=== PATIENT | female | born 2005 | race Caucasian/White ===

== ENCOUNTER 2023-04-30 14:58 | Inpatient (IN) ==
--- NOTE | 2023-04-30 15:45 | XRay Report ---
SINGLE VIEW CHEST CLINICAL HISTORY: Atypical chest pain FINDINGS: A PA chest radiograph is obtained. No prior studies are available for comparison at the yusuf e of dictation. The cardiomediastinal silhouette is unremarkable. The lungs and pleural spaces are cl ear. No pneumothorax is seen. The bony thorax is grossly intact. IMPRESSION: No active disease in the chest. ACT 112: Negative or not required by law. Electronically signed by: Santi Pagan M.D. 04/30/2023 3:44 PM
[2023-04-30 15:50] LABS: Basophils # (auto) 0.06 K/uL (0.00-0.20); Basophils % (auto) 0.8 %; Eosinophils # (auto) 0.11 K/uL (0.00-0.50); Eosinophils % (auto) 1.4 %; Hematocrit (blood only) 41.8 % (37.0-47.0); Hemoglobin 13.7 g/dl (12.0-16.0); Immature Granulocytes # (auto) 0.03 K/uL (0.01-0.20); Immature Granulocytes % (auto) 0.4 %; Lymphocytes # (auto) 2.05 K/uL (1.20-3.40); Lymphocytes % (auto) 25.9 %; Mean Corpuscular Hgb Conc 32.8 g/dL (32.0-36.0); Mean Corpuscular Volume 79.3 fL (80.0-100.0); Mean Platelet Volume 10.8 fL (9.4-12.4); Monocytes # (auto) 0.63 K/uL (0.11-0.59); Neutrophils # (auto) 5.03 K/uL (1.40-6.50); Neutrophils % (auto) 63.5 %; Platelet Count 423 K/uL (130-400); RDW Coefficient of Variation 13.6 % (11.5-14.5); Red Blood Count 5.27 M/uL (4.20-5.40); White Blood Count 7.91 K/ul (4.8-10.8)
[2023-04-30 15:59] LABS: Alanine Aminotransferase 30 U/L (7-52); Albumin Globulin Ratio 1.7 (0.9-2); Albumin Level 4.5 gm/dl (3.4-5.0); Alkaline Phosphatase 63 U/L (34-104); Anion Gap 7 (3-11); Aspartate Aminotransferase 24 U/L (13-39); BUN Creatinine Ratio 17.4 (10-20); Bilirubin,Total 0.4 mg/dl (0.2-1.0); Blood Urea Nitrogen 16 mg/dl (6-23); Calcium 9.8 mg/dl (8.6-10.3); Carbon Dioxide 26 mmol/L (21-32); Chloride 108 mmol/L (98-107); Creatinine Clr Calc Pharmacy 77.8 ml/min; Est GFR (African American) 104.6 ml/min; Est GFR (Non-African American) 90.3 ml/min; Globulin 2.7 gm/dl (2.5-4.0); Glucose 99 mg/dl (70-99(Fasting)); Potassium 3.8 mmol/L (3.5-5.1); Sodium 141 mmol/L (136-145); Total Protein 7.2 gm/dl (6.0-8.3)
[2023-04-30 16:09] LABS: Troponin I High Sensitivity 215.6 pg/ml (0-14)
[2023-04-30 16:12] LABS: INR 1.1 (0.9-1.1); Partial Thromboplastin Time 27 Seconds (21-31); Prothrombin Time 11.9 Seconds (9.0-12.0)
--- NOTE | 2023-04-30 16:23 | Electrocardiogram Report ---
Test Reason : Blood Pressure : / mmHG Vent. Rate : 049 BPM Atrial Rate : 049 BPM P-R Int : 142 ms QRS Dur : 118 ms QT Int : 556 ms P-R-T Axes : 066 104 042 degrees QTc Int : 502 ms Sinus bradycardia with 2:1 A-V block Rightward axis Incomplete right bundle branch block Normal ECG No previous ECGs available Reconfirmed by Renato Gray ([id number]) on 05/01/2023 11:39:20 AM Referred By: Confirmed By:Renato Gray
--- NOTE | 2023-04-30 16:27 | Emergency Department Note ---
Impression & Plan Complete heart block, Chest pain, Shortness of breath, Elevated troponin ED Provider Note NAME: LOLA CAICEDO AGE: 17 SEX: F : 2005 ARRIVES VIA: Walk-In INFORMANT: Patient ED PROVIDER(S): Marko Craft DO CHIEF COMPLAINT: chest pain HPI: Patient is a 17-year-old female with no significant past medical history that presents the ER for 5 days worth of chest pain and shortness of breath. It is in the middle and goes through to the back described as a squeezing pain. She notes it has been gradually getting worse. Mainly with exertion. No belly pain, nausea, vomiting, or diarrhea. No dysuria, urgency, or frequency. No history of Marfan's or Padmaja-Danlos. She notes it is better at rest but she sometimes still gets it with rest. Patient denies swelling of calves, recent trips, history of immobilization or recent surgery, prior history of DVT, hemoptysis, history of malignancy, history of smoking, or control/estrogen use. Patient denies diabetes, hypertension, hyperlipidemia, CAD, history of sudden at a young age, and smoking. ADDITIONAL HISTORY OBTAINED: Per HPI Chronic Medical/Social Conditions Affecting Care: Per HPI PAST MEDICAL HISTORY:See Below PAST SURGICAL HISTORY:See Below FAMILY HISTORY:See Belowr EXAM: GENERAL: Alert, awake, following commands well OROPHARYNX: no exudate, no erythema, lips, buccal mucosa, and tongue normal and mucous membranes are moist NECK: supple, no nuchal rigidity, no adenopathy, non-tender LUNGS: Clear to auscultation. Normal chest wall mechanics HEART: no murmurs, S1 normal and S2 normal ABDOMEN: abdomen soft, non-tender, normo-active bowel sounds, no masses, no rebound or guarding. BACK: Back is symmetrical on inspection and there is no deformity, no midline tenderness, no CVA tenderness. SKIN: no rashes and no bruising UPPER EXTREMITIES: upper extremities are grossly normal. Radial pulses are equal bilateral LOWER EXTREMITIES: No pitting edema. Calves are equal NEURO EXAM: Normal sensorium, cranial nerves II-XII grossly intact, normal speech, no gross weakness of arms, no gross weakness of legs. MEDICAL DECISION MAKING: Patient is a 17-year-old female who presents ER for above-stated complaint. IV was established blood work is obtained. Labs show no significant leukocytosis or anemia. INR was unremarkable. BMP is unremarkable as well as LFTs bilirubin and magnesium. Troponin was elevated at 200. CRP and sed were negative. TSH was unremarkable. Patient was in a sinus rhythm initially and then went into complete heart block. I added on the line. She maintained her blood pressures and was fairly asymptomatic. Chest x-ray was unremarkable. Discussed case with Dr. Romaine Tay and Dr. Gray from cardiology. Cardiology will evaluate her tomorrow and the hospitalist evaluated her while here in the ER and admitted her for further workup. Mom was updated at bedside. CT angio of the chest was negative. Patient was placed on the pad to monitor closely. Consults/Care Managements Discussions: Per [facility] Triage Nursing notes reviewed. Limited review of prior medical records performed Vital Signs: reviewed and remarkable for HTN Differential diagnosis: Differential diagnoses includes but is not limited to gastritis, peptic ulcer disease, GERD, gallbladder disease, pancreatitis, small bowel obstruction, appendicitis, diverticulitis, hernia, urinary tract infection, torsion, /ectopic (if female), perforation, trauma, infectious. ER treatment provided: See below Diagnostics interpreted by me include EKG and cardiac monitoring as listed below: -Cardiac Monitoring: An order was placed for continuous cardiac monitoring. The monitor shows a rate of 45 with heart block rhythm. -ECG: Sinus rhythm rate of 49 Right axis No PVCs T wave inversion in septal leads QTc 502 EKG #2 shows complete heart block with a rate of 45 Right axis T wave inversion in septal leads QTc 479 -Laboratory studies:Interpreted by me as stated above in MDM and shown below. Imaging studies: Xrays: As interpreted by me: Portable AP upright 1 view of the chest shows no focal betrayed CTs show: CT angio of the chest was negative Procedures:none Critical Care: I have personally spent 32 minutes of critical care time in the direct management of this patient. This includes bedside care, interpretation of diagnostic studies, and testing, discussion with consultants, patient, and family members, and other required patient management activities. This 32 minutes is in excess of all separately billable procedures. Past Med/Surg History Medical History (Updated 04/30/23 @ 22:20 by Marko Craft DO) No pertinent past medical history Surgical History (Updated 04/30/23 @ 17:28 by Romaine Tay MD) No pertinent past surgical history Social History Smoking Status: Never smoker Second Hand Exposure: No; Do You Dip or Chew Tobacco: No; Hx Alcohol Use: No Hx Substance Use: No Preferred Language: Thai Communication Ability: Effective Burrer Operator Required: No Beliefs That Will Affect Care: None Current Living Situation: Other Current Living Situation Comment: dorm room at [facility] Other Information That Helps Us Care for You: No Feels Safe at Home: Yes Safety Concerns: Feels Safe At This Time Allergies Allergies Allergy/AdvReac Type Severity Reaction Status Date / Time No Known Allergies Allergy Unverified 04/30/23 17:09 Home Meds Home Medications Medication Instructions Recorded Confirmed No Known Home Medications 04/30/23 04/30/23 Results & Data (ED) Vital Signs Vital Signs - 24 hr 04/30/23 15:02 04/30/23 16:50 04/30/23 17:01 Temperature 36.8 C Temperature Source Temporal Artery Scan Pulse Rate 49 L 45 L Pulse Rate [Apical] 48 L Pulse Rate from SpO2 Sensor 45 L Pulse Rhythm Regular Pulse Strength Normal Respiratory Rate 17 18 18 Respiratory Effort / Characteristics Non-Labored Spontaneous Respiratory Depth Normal Respiratory Pattern Regular Blood Pressure 178/90 H Blood Pressure [Right Arm] 140/73 Blood Pressure Mean 119 Blood Pressure Mean [Right Arm] 95 Blood Pressure Position Sitting Pulse Oximetry 100 97 98 Oxygen Delivery Method Room Air Room Air Sepsis Recent Fever Within 48 Hours No Sepsis New/Unexplained Change in Mental Status N/A Sepsis Action Taken by Nursing No Action Required 04/30/23 17:20 04/30/23 17:30 04/30/23 17:30 Temperature Temperature Source Pulse Rate 45 L 46 L Pulse Rate [Apical] Pulse Rate from SpO2 Sensor 46 L Pulse Rhythm Pulse Strength Respiratory Rate 17 Respiratory Effort / Characteristics Respiratory Depth Respiratory Pattern Blood Pressure 151/74 H Blood Pressure [Right Arm] Blood Pressure Mean 95 Blood Pressure Mean [Right Arm] Blood Pressure Position Pulse Oximetry 98 Oxygen Delivery Method Sepsis Recent Fever Within 48 Hours Sepsis New/Unexplained Change in Mental Status Sepsis Action Taken by Nursing 04/30/23 18:00 04/30/23 18:00 04/30/23 18:14 Temperature Temperature Source Pulse Rate 45 L Pulse Rate [Apical] Pulse Rate from SpO2 Sensor 46 L Pulse Rhythm Pulse Strength Respiratory Rate 16 Respiratory Effort / Characteristics Respiratory Depth Respiratory Pattern Blood Pressure 150/75 H 148/73 H Blood Pressure [Right Arm] Blood Pressure Mean 111 113 Blood Pressure Mean [Right Arm] Blood Pressure Position Pulse Oximetry 98 Oxygen Delivery Method Sepsis Recent Fever Within 48 Hours Sepsis New/Unexplained Change in Mental Status Sepsis Action Taken by Nursing 04/30/23 18:14 Temperature Temperature Source Pulse Rate 46 L Pulse Rate [Apical] Pulse Rate from SpO2 Sensor 45 L Pulse Rhythm Pulse Strength Respiratory Rate 16 Respiratory Effort / Characteristics Respiratory Depth Respiratory Pattern Blood Pressure Blood Pressure [Right Arm] Blood Pressure Mean Blood Pressure Mean [Right Arm] Blood Pressure Position Pulse Oximetry 97 Oxygen Delivery Method Sepsis Recent Fever Within 48 Hours Sepsis New/Unexplained Change in Mental Status Sepsis Action Taken by Nursing Laboratory Data 04/30/23 15:15 04/30/23 15:15 Lab Results 04/30/23 04/30/23 04/30/23 Range/Units 15:15 15:17 17:00 WBC 7.91 (4.8-10.8) K/ul RBC 5.27 (4.20-5.40) M/uL Hgb 13.7 (12.0-16.0) g/dl Hct 41.8 (37.0-47.0) % MCV 79.3 L (80.0-100.0) fL MCH 26.0 (25.0-34.0) pg MCHC 32.8 (32.0-36.0) g/dL RDW Std Deviation 39.0 (36.4-46.3) fL RDW Coeff of [place] 13.6 (11.5-14.5) % Plt Count 423 H (130-400) K/uL MPV 10.8 (9.4-12.4) fL Immature Gran % (Auto) 0.4 % Neut % (Auto) 63.5 % Lymph % (Auto) 25.9 % [place] % (Auto) 8.0 % Eos % (Auto) 1.4 % Baso % (Auto) 0.8 % Neut # (Auto) 5.03 (1.40-6.50) K/uL Lymph # (Auto) 2.05 (1.20-3.40) K/uL [place] # (Auto) 0.63 H (0.11-0.59) K/uL Eos # (Auto) 0.11 (0.00-0.50) K/uL Baso # (Auto) 0.06 (0.00-0.20) K/uL Immature Gran # (Auto) 0.03 (0.01-0.20) K/uL ESR 3 (0-20) mm/hr PT 11.9 (9.0-12.0) Seconds INR 1.1 (0.9-1.1) APTT 27 (21-31) Seconds PTT Ratio 1.0 Sodium 141 (136-145) mmol/L Potassium 3.8 (3.5-5.1) mmol/L Chloride 108 H (98-107) mmol/L Carbon Dioxide 26 (21-32) mmol/L Anion Gap 7 (3-11) BUN 16 (6-23) mg/dl Creatinine 0.92 (0.6-1.2) mg/dl Est Cr Clr Drug Dosing 77.8 ml/min Est GFR ( Amer) 104.6 ml/min Est GFR (Non-Af Amer) 90.3 ml/min BUN/Creatinine Ratio 17.4 (10-20) Glucose 99 (70-99(Fasting)) mg/dl Calcium 9.8 (8.6-10.3) mg/dl Magnesium 2.1 (1.7-2.4) mg/dl Total Bilirubin 0.4 (0.2-1.0) mg/dl AST 24 (13-39) U/L ALT 30 (7-52) U/L Alkaline Phosphatase 63 (34-104) U/L Total Creatine Kinase 121 (26-192) U/L Troponin I High Sens 215.6 H* 202.8 H* (0-14) pg/ml C-Reactive Protein < 0.50 (0-0.5) mg/dl Total Protein 7.2 (6.0-8.3) gm/dl Albumin 4.5 (3.4-5.0) gm/dl Globulin 2.7 (2.5-4.0) gm/dl Albumin/Globulin Ratio 1.7 (0.9-2) TSH 1.138 (0.300-4.500) uIu/ml Lyme Disease IgG Ab Negative (Negative) Lyme Disease IgM Ab Negative (Negative) Administered Medications Lactated Ringer's (Lr) 1,000 mls @ 125 mls/hr IV .Q8H SABINE Stop: 05/30/23 18:59 Last Admin: 04/30/23 20:01 Dose: 125 mls/hr Documented By: BRIJESH Miscellaneous (Icu Protocol For Hyperglycemia) 1 each N/A ACHS SABINE Stop: 05/02/23 20:59 Last Admin: 04/30/23 22:03 Dose: Not Given Documented By: BRIJESH Discontinued Medications Ioversol (Optiray 320 125ml) 115 ml IV ONCE ONE Stop: 04/30/23 16:43 Last Admin: 04/30/23 16:42 Dose: 115 ml Documented By: ZELALEM Imaging Data Radiologist's Impression: Chest X-Ray 04/30/23 15:05 SINGLE VIEW CHEST CLINICAL HISTORY: Atypical chest pain FINDINGS: A PA chest radiograph is obtained. No prior studies are available for comparison at the time of dictation. The cardiomediastinal silhouette is unremarkable. The lungs and pleural spaces are clear. No pneumothorax is seen. The bony thorax is grossly intact. IMPRESSION: No active disease in the chest. ACT 112: Negative or not required by law. Electronically signed by: Santi Pagan M.D. 04/30/2023 3:44 PM Chest CTA 04/30/23 16:16 CT ANGIOGRAM OF THE CHEST CLINICAL HISTORY: Atypical chest pain COMPARISON STUDY: Chest x-ray dated 04/30/2023. TECHNIQUE: Following the IV administration of 115 cc of Optiray 320, CT angiogram of the chest was performed from the upper abdomen to the thoracic inlet utilizing the pulmonary embolus protocol. Images are reviewed in the axial, sagittal, and coronal planes. 3-D MIPS images are created and assessed. IV contrast was administered without complication. A dose lowering technique was utilized adhering to the principles of ALARA. CT DOSE: 306.36 mGy.cm FINDINGS: Thyroid: Imaged portions of the thyroid gland are normal in size and attenuation. Thoracic aorta: The thoracic aorta is normal in caliber and demonstrates standard 3-vessel arch anatomy. No dissection is seen. Pulmonary vasculature: The pulmonary trunk is normal in caliber. There are no filling defects identified in main, lobar, or segmental pulmonary branches to suggest pulmonary embolus. Heart: The heart is normal in size and without pericardial effusion. Lungs and pleural spaces: There is no airspace consolidation or pleural effusion. The trachea and central airway are clear. A 5 mm left lower lobe pulmonary nodule is seen on image #53, and a 3 mm pleural-based nodule at the left lung base is seen on image #48. These are of doubtful significance in this age group. There is also mild pleural-based nodularity along the left major fissure. Mediastinum: There is no mediastinal lymphadenopathy. Alida: Clear. Axillae: There is no axillary lymphadenopathy. Upper abdomen: Partially visualized upper abdominal viscera is within normal limits. Skeletal structures: No lytic or blastic bony lesions are seen. IMPRESSION: 1. There is no evidence of pulmonary embolus in the main, lobar, or segmental pulmonary arteries. 2. The lungs are clear. ACT 112: Negative or not required by law Electronically signed by: Santi Pagan M.D. 04/30/2023 4:54 PM Discharge Plan Visit Data Chief Complaint: Cardiac Assessment Stated Complaint: SOB, CHEST AND BACK PAIN ED Provider: Marko Craft Discharge Problem: Complete heart block, Chest pain, Shortness of breath, Elevated troponin Discharge Problem: Chest pain Qualifiers: Chest pain type: unspecified Qualified Code(s): R07.9 - Chest pain, unspecified
[2023-04-30] MEDS ORDERED: OPTIRAY 320 125ml IV ONE (16:42)
[2023-04-30 16:52] LABS: Creatine Kinase 121 U/L (26-192)
--- NOTE | 2023-04-30 16:55 | CT Scan Report ---
CT ANGIOGRAM OF THE CHEST CLINICAL HISTORY: Atypical chest pain COMPARISON STUDY: Chest x-ray dated 04/30/2023. TECHNIQUE: Following the IV administration of 115 cc of Optiray 320, CT angiogram of the chest was pe rformed from the upper abdomen to the thoracic inlet utilizing the pulmonary embolus protocol. Images are reviewed in the axial, sagittal, and coronal planes. 3-D MIPS images are created and assessed. I V contrast was administered without complication. A dose lowering technique was utilized adhering to the principles of ALARA. CT DOSE: 306.36 mGy.cm FINDINGS: Thyroid: Imaged portions of the thyroid gland are normal in size and attenuation. Thoracic aorta: The thoracic aorta is normal in caliber and demonstrates standard 3-vessel arch anato my. No dissection is seen. Pulmonary vasculature: The pulmonary trunk is normal in caliber. There are no filling defects identif ied in main, lobar, or segmental pulmonary branches to suggest pulmonary embolus. Heart: The heart is normal in size and without pericardial effusion. Lungs and pleural spaces: There is no airspace consolidation or pleural effusion. The trachea and jakob tral airway are clear. A 5 mm left lower lobe pulmonary nodule is seen on image #53, and a 3 mm pleur al-based nodule at the left lung base is seen on image #48. These are of doubtful significance in thi s age group. There is also mild pleural-based nodularity along the left major fissure. Mediastinum: There is no mediastinal lymphadenopathy. Alida: Clear. Axillae: There is no axillary lymphadenopathy. Upper abdomen: Partially visualized upper abdominal viscera is within normal limits. Skeletal structures: No lytic or blastic bony lesions are seen. IMPRESSION: 1. There is no evidence of pulmonary embolus in the main, lobar, or segmental pulmonary arteries. 2. The lungs are clear. ACT 112: Negative or not required by law Electronically signed by: Santi Pagan M.D. 04/30/2023 4:54 PM
--- NOTE | 2023-04-30 17:25 | History & Physical Report ---
Date of Service April 30, 2023 Assessment & Plan (1) Complete heart block: Plan: Pacer pads in place Consult cardiology - discussed with Dr Gray, not for temporary pacing wire as currently stable Lyme pending CRP/ESR added Trend troponin TTE Admit to ICU (2) Chest pain: Plan: With elevated but stable troponin. Low suspicion of ACS given very low risk with stable troponin, no chest pain at rest. ?Perimyocarditis. TTE ordered Trend troponin (3) Shortness of breath: Plan VTE Prophylaxis - low risk Diet - NPO Disposition - admit to ICU Admission and Anticipated Discharge Date Admission Date: April 30, 2023 History of Present Illness Chief Complaint: Chest pain Primary Care Provider: Jaycob Simmons MD Juanita Mckeon is a 17 year old female who presents to the ER with intermittent exertional chest pain shortness of breath and dizziness. New onset over the last 5-6 days without significant progression. She is usually physically active without any of these symptoms. Otherwise she has felt well without fever, chills, respiratory, gastroenterology or urinary infective symptoms. She has not noticed her symptoms getting much worse but also not better therefore decided to come to the ER today. She notably has also noticed the chest pain while lying down but do less of an extent. Only recent over the counter medication has been diphenhydramine which she only took 4 times during finals. No prior cardiac history. No prior pertinent medical or surgical history. No known tick bites [place]. Allergies Allergy/AdvReac Type Severity Reaction Status Date / Time No Known Allergies Allergy Unverified 04/30/23 17:09 Home Medications Medication Instructions Recorded Confirmed Type No Known Home Medications 04/30/23 04/30/23 History Past Med/Surg History Medical History (Updated 04/30/23 @ 17:28 by Romaine Tay MD) No pertinent past medical history Surgical History (Updated 04/30/23 @ 17:28 by Romaine Tay MD) No pertinent past surgical history Social History Smoking Status: Never smoker Second Hand Exposure: No; Do You Dip or Chew Tobacco: No; Hx Alcohol Use: No Hx Substance Use: No Preferred Language: Slovenian Communication Ability: Effective Business Unit Controller Required: No Beliefs That Will Affect Care: None Current Living Situation: Other Current Living Situation Comment: [facility] room at [facility] Feels Safe at Home: Yes Review of Systems Review of Systems: All systems reviewed & are unremarkable except as noted in HPI & below Physical Exam Constitutional: WD/WN, vitals as above Eyes: + anicteric sclerae; normal pupil size ENMT: external ear and nose normal, oropharynx normal Neck: trachea midline, no thyromegaly Respiratory: normal respiratory effort, lungs clear to auscultation Cardiovascular: Rate/Rhythm: regular rhythm and + bradycardic Heart Sounds: no murmur Extremities: normal capillary refill; no calf tenderness and no pedal edema Gastrointestinal (Abdomen): normal bowel sounds, soft, nontender, no hepatosplenomegaly Skin: no rashes, warm and dry Neurologic: moves all extremities and awake; not confused Psychiatric: A+Ox3, euthymic affect Results & Data Results & Data Vital Signs (Past 12 Hours) Vital Signs Temp Pulse Pulse Resp BP BP Pulse Ox 04/30/23 16:50 48 L 18 140/73 97 04/30/23 15:02 36.8 C 49 L 17 178/90 H 100 O2 Del Method 04/30/23 16:50 Room Air 04/30/23 15:02 Room Air Laboratory Results Abnormal lab results 04/30/23 Range/Units 15:15 MCV 79.3 L (80.0-100.0) fL Plt Count 423 H (130-400) K/uL [place] # (Auto) 0.63 H (0.11-0.59) K/uL Chloride 108 H (98-107) mmol/L Troponin I High Sens 215.6 H* (0-14) pg/ml Diagnostic Findings SINGLE VIEW CHEST CLINICAL HISTORY: Atypical chest pain FINDINGS: A PA chest radiograph is obtained. No prior studies are available for comparison at the time of dictation. The cardiomediastinal silhouette is unremarkable. The lungs and pleural spaces are clear. No pneumothorax is seen. The bony thorax is grossly intact. IMPRESSION: No active disease in the chest. CT ANGIOGRAM OF THE CHEST CLINICAL HISTORY: Atypical chest pain COMPARISON STUDY: Chest x-ray dated 04/30/2023. TECHNIQUE: Following the IV administration of 115 cc of Optiray 320, CT angiogram of the chest was performed from the upper abdomen to the thoracic inlet utilizing the pulmonary embolus protocol. Images are reviewed in the axi al, sagittal, and coronal planes. 3-D MIPS images are created and assessed. IV contrast was administered without complication. A dose lowering technique was utilized adhering to the principles of ALARA. CT DOSE: 306.36 mGy.cm FINDINGS: Thyroid: Imaged portions of the thyroid gland are normal in size and attenuation. Thoracic aorta: The thoracic aorta is normal in caliber and demonstrates standa rd 3-vessel arch anatomy. No dissection is seen. Pulmonary vasculature: The pulmonary trunk is normal in caliber. There are no filling defects identified in main, lobar, or segmental pulmonary branches to suggest pulmonary embolus. Heart: The heart is normal in size and without pericardial effusion. Lungs and pleural spaces: There is no airspace consolidation or pleural effusion. The trachea and central airway are clear. A 5 mm left lower lobe pulmonary nodule is seen on image #53, and a 3 mm pleural-based nodule at the left lung base is seen on image #48. These are of doubtful significance in this age group. There is also mild pleural-based nodularity along the left major fissure. Mediastinum: There is no mediastinal lymphadenopathy. Alida: Clear. Axillae: There is no axillary lymphadenopathy. Upper abdomen: Partially visualized upper abdominal viscera is within normal limits. Skeletal structures: No lytic or blastic bony lesions are seen. IMPRESSION: 1. There is no evidence of pulmonary embolus in the main, lobar, or segmental pulmonary arteries. 2. The lungs are clear. Medications Administered ER Medications Given: None ECG Rate (beats per minute): 45 Rhythm: other (complete heart block) Findings: + other (rightward axis) and + RBBB Comparison ECG Date: from (Apr 30, 2023 15:20) Change: the following changes noted (complete heart block is new) Code Status & VTE Plan Code Status Full VTE Prophylaxis Plan VTE Prophylaxis will be ordered: No PG Care Time/CCT Total # of Minutes Spent Total Time Spent with Patient: Total time spent is greater than 50% in coordination of care (as documented) at patient's floor/unit and/or counseling patient: Coding Level of Care Code 93926 INT INP/OBS CARE 2/55MIN Diagnoses Complete heart block I44.2 Chest pain R07.9 Shortness of breath R06.02
[2023-04-30 18:00] LABS: C Reactive Protein < 0.50 mg/dl (0-0.5)
[2023-04-30 19:08] LABS: Lyme Ab IgG w/WB Rflx Negative (Negative); Lyme Ab IgM w/WB Rflx Negative (Negative)
--- NOTE | 2023-04-30 19:35 | Critical Care Consultation ---
Date of Consultation April 30, 2023 Assessment & Plan (1) Complete heart block: Plan 1. Complete Heart Block, unknown etiology, rule out Lyme Disease Lyme titer pending, if positive will start ceftriaxone TTE pending for AM Repeat EKG as needed for rhythm change Trend troponin IV hydration overnight Cardiology consult, appreciate recommendations Aggressive correction of electrolyte disturbances Will order TSH 2. NSTEMI II, demand ischemia As above, trend troponin Avoid sedating medications, CAM-ICU negative SpO2 > 92% Diet: Clears, NPO at 0000 SUP: N/A Bowel regimen: PRN DVT PPX: Low risk, SCDs L/T/D: PIV x2 Supervising Physician Co-Signing Physician Notes Patient seen and examined. EMR reviewed. Discussed with critical care AKOSUA and agree with assessment plan as noted. Please refer to my progress note from 05/01/2023 for additional details History of Present Illness Reason for Consultation: Complete Heart Block Attending Physician: Romaine Tay MD History of Present Illness Miss Juanita Mckeon is a pleasant 17YO F who presented to [facility] ED due to 5-6 days of chest pressure, fatigue, exertional dyspnea, and dizziness. Patient noted to have HR in the 40s. EKG performed showing CHB. Remainder of workup remarkable for elevated troponin of 210, CTPE negative. Hemodynamically stable and afebrile. Cardiology consulted who defer TPM given stability. She was admitted to ICU for close monitoring. Seen in ICU10. She is AAOx3. Accompanied by her parents. She denies current complaints including chest pain, shortness of breath, abdominal pain, lower extremity edema, headache, visual disturbances. She and her family are avid hikers and enjoy the outdoors frequently. [place]. POCUS performed to rule out other acute etiologies. Her LVEF is grossly normal, wall thickness is WNL, no pericardial effusion. Valves not assessed by doppler. Allergies Allergy/AdvReac Type Severity Reaction Status Date / Time No Known Allergies Allergy Unverified 04/30/23 17:09 Home Medications Medication Instructions Recorded Confirmed Type No Known Home Medications 04/30/23 04/30/23 History Patient History Medical History (Updated 04/30/23 @ 22:20 by Marko Craft DO) No pertinent past medical history Surgical History (Updated 04/30/23 @ 17:28 by Romaine Tay MD) No pertinent past surgical history Social History Smoking Status: Never smoker Second Hand Exposure: No; Do You Dip or Chew Tobacco: No; Hx Alcohol Use: No Hx Substance Use: No Preferred Language: Fijian Communication Ability: Effective Kier Hand Required: No Beliefs That Will Affect Care: None Current Living Situation: Other Current Living Situation Comment: dorm room at [facility] Other Information That Helps Us Care for You: No Feels Safe at Home: Yes Safety Concerns: Feels Safe At This Time Review of Systems Review of Systems: All systems reviewed & are unremarkable except as noted in Subjective Physical Exam Constitutional: WD/WN, vitals as above Eyes: PERRL, conjunctivae normal, anicteric sclerae ENMT: external ear and nose normal, oropharynx normal Neck: trachea midline, no thyromegaly no lymphadenopathy Respiratory: normal respiratory effort, lungs clear to auscultation Cardiovascular: Rate/Rhythm: + bradycardic Heart Sounds: no murmur Vessels: normal peripheral pulses; no JVD and no carotid bruit Extremities: normal capillary refill; no calf tenderness and no edema Gastrointestinal (Abdomen): normal bowel sounds, soft, nontender, no hepatosplenomegaly Musculoskeletal: no cyanosis or clubbing, extremities motor strength 5/5 Skin: no rashes, warm and dry Neurologic: PERRL, EOMI, accommodation nl, no face palsy, no dysarthria Psychiatric: A+Ox3, euthymic affect Results & Data Results & Data Vital Signs (Past 12 Hours) Vital Signs Temp Pulse Pulse Resp BP BP Pulse Ox 04/30/23 18:34 46 L 18 148/73 H 98 04/30/23 17:30 46 L 17 98 04/30/23 17:30 151/74 H 04/30/23 17:20 45 L 04/30/23 17:01 45 L 18 98 04/30/23 16:50 48 L 18 140/73 97 04/30/23 15:02 36.8 C 49 L 17 178/90 H 100 O2 Del Method 04/30/23 18:34 Room Air 04/30/23 17:30 04/30/23 17:30 04/30/23 17:20 04/30/23 17:01 04/30/23 16:50 Room Air 04/30/23 15:02 Room Air Laboratory Results Reviewed Diagnostic Findings Reviewed Medications Administered See MAR Coding Level of Care Code 99652 IN/OBS CONSULT LVL 2,35M Diagnoses Complete heart block I44.2
[2023-04-30] MEDS: LACTATED RINGER'S 1,000 ML IV SCH (20:01)
[2023-04-30 21:52] LABS: Magnesium 2.1 mg/dl (1.7-2.4)
[2023-04-30] MEDS: ICU Protocol for HYPERglycemia SCH (22:03)
[2023-04-30 22:08] LABS: Thyroid Stimulating Hormone 1.138 uIu/ml (0.300-4.500)
[2023-05-01] MEDS ORDERED: POTASSIUM CHLORIDE CRTAB 20 MEQ TABCR PO ONE (03:30)
[2023-05-01 03:38] LABS: Amphetamines+Metham, Urine Neg (Neg); Barbiturates, Urine Neg (Neg); Benzodiazepine, Urine Neg (Neg); Cocaine, Urine Neg (Neg); MDMA (Ecstacy), Urine Neg (Neg); Marijuana, Urine Neg (Neg); Methadone, Urine Neg (Neg); Opiate, Urine Neg (Neg); Phencyclidine, Urine Neg (Neg)
[2023-05-01] MEDS: LACTATED RINGER'S 1,000 ML IV SCH ×2 (03:56→10:56)
[2023-05-01 05:15] LABS: Basophils # (auto) 0.05 K/uL (0.00-0.20); Basophils % (auto) 0.8 %; Eosinophils # (auto) 0.14 K/uL (0.00-0.50); Eosinophils % (auto) 2.1 %; Hematocrit (blood only) 37.1 % (37.0-47.0); Hemoglobin 12.2 g/dl (12.0-16.0); Immature Granulocytes # (auto) 0.01 K/uL (0.01-0.20); Immature Granulocytes % (auto) 0.2 %; Lymphocytes # (auto) 1.71 K/uL (1.20-3.40); Lymphocytes % (auto) 25.9 %; Mean Corpuscular Hemoglobin 26.2 pg (25.0-34.0); Mean Corpuscular Hgb Conc 32.9 g/dL (32.0-36.0); Mean Corpuscular Volume 79.6 fL (80.0-100.0); Mean Platelet Volume 10.5 fL (9.4-12.4); Monocytes # (auto) 0.56 K/uL (0.11-0.59); Monocytes % (auto) 8.5 %; Neutrophils # (auto) 4.14 K/uL (1.40-6.50); Neutrophils % (auto) 62.5 %; Platelet Count 336 K/uL (130-400); RDW Coefficient of Variation 13.8 % (11.5-14.5); RDW Standard Deviation 39.4 fL (36.4-46.3); Red Blood Count 4.66 M/uL (4.20-5.40); White Blood Count 6.61 K/ul (4.8-10.8)
[2023-05-01 05:27] LABS: Calcium 8.7 mg/dl (8.6-10.3); Magnesium 1.9 mg/dl (1.7-2.4); Potassium 3.8 mmol/L (3.5-5.1)
[2023-05-01 05:33] LABS: BUN Creatinine Ratio 14.7 (10-20); Creatinine Clr Calc Pharmacy 95.4 ml/min; Est GFR (African American) 133.9 ml/min; Est GFR (Non-African American) 115.6 ml/min
[2023-05-01 05:47] LABS: Troponin I High Sensitivity 185.4 pg/ml (0-14)
--- NOTE | 2023-05-01 08:51 | Critical Care Progress Note ---
Date of Service May 01, 2023 Assessment & Plan (1) Complete heart block: (2) Elevated troponin: Plan Impression: 17-year-old female with intermittent chest pain and dizziness for 5 to 6 days found to be in complete heart block in the emergency room. Lyme titers negative. Recommendations: 1. Complete heart block: Discussed with cardiology. Evidence of some myocarditis with elevated troponin. Lyme studies negative however sensitivity is typically only 30 to 40% during early infection. With disseminated disease sensitivity usually 70 to 100%. May warrant empiric therapy. Viral myocarditis with conduction abnormality would also be on the differential. Could be a congenital problem and await follow-up echocardiogram. 2. Elevated troponin. Decreasing today. Will defer to cardiology as to whether or not continued surveillance is needed. The patient has a narrow complex escape rhythm in the 40s and appears to be hemodynamically stable. Unclear if she requires continued ICU level care and will defer disposition to cardiology. She may be able to downgrade to telemetry given her clinical stability but again will defer to them. Will continue to follow while in the intensive care unit but if she downgrades, will transition care to the hospitalist. Above recommendations and plan were extensively discussed with the patient as well as with her father, mother, and stepfather in the room. Questions were answered to the best my ability. Admission and Anticipated Discharge Date Admission Date: April 30, 2023 Subjective Patient seen and examined. EMR reviewed. Discussed with cardiology at bedside as well as with patient parents and on multidisciplinary rounds and with bedside critical care nurse. Patient is doing well clinically. She has not had any significant chest pain or palpitations. She has been up using the commode. No syncope or presyncope. She has not had any palpitations. No skin rashes or lesions. She denies any joint discomfort or arthralgias. Review of Systems Review of Systems: All systems reviewed & are unremarkable except as noted in Subjective Physical Exam Constitutional: WD/WN, vitals as above Neck: trachea midline, no thyromegaly Respiratory: normal respiratory effort, lungs clear to auscultation Cardiovascular: Rate/Rhythm: + bradycardic Heart Sounds: normal S1 and normal S2; no murmur Gastrointestinal (Abdomen): normal bowel sounds, soft, nontender, no hepatosplenomegaly Musculoskeletal: Extremities: extremities normal to inspection Skin: no rashes, warm and dry Neurologic: Nonfocal exam Lymphatic: no cervical lymphadenopathy Results & Data Results & Data Vital Signs (Past 12 Hours) Vital Signs Temp Pulse Resp BP Pulse Ox O2 Del Method 05/01/23 06:00 121/58 L 05/01/23 06:00 40 L 15 98 05/01/23 05:00 129/68 05/01/23 05:00 44 L 14 98 05/01/23 04:00 117/59 L 05/01/23 04:00 45 L 17 05/01/23 04:00 36.3 C L 05/01/23 03:00 115/60 05/01/23 03:00 50 L 33 H 05/01/23 02:00 126/58 L 05/01/23 02:00 41 L 11 L 96 05/01/23 01:00 129/58 L 05/01/23 01:00 44 L 26 H 98 05/01/23 00:00 36.5 C 05/01/23 00:00 128/59 L 05/01/23 00:00 42 L 13 98 Room Air 05/01/23 00:00 46 L 04/30/23 23:00 42 L 16 97 04/30/23 23:00 128/60 04/30/23 22:00 148/73 H 04/30/23 22:00 43 L 19 99 04/30/23 21:00 122/72 04/30/23 21:00 45 L 26 H 98 Critical Care Results & Data Vital Signs (Past 12 Hours) Vital Signs Temp Pulse Resp BP Pulse Ox O2 Del Method 05/01/23 06:00 121/58 L 05/01/23 06:00 40 L 15 98 05/01/23 05:00 129/68 05/01/23 05:00 44 L 14 98 05/01/23 04:00 117/59 L 05/01/23 04:00 45 L 17 05/01/23 04:00 36.3 C L 05/01/23 03:00 115/60 05/01/23 03:00 50 L 33 H 05/01/23 02:00 126/58 L 05/01/23 02:00 41 L 11 L 96 05/01/23 01:00 129/58 L 05/01/23 01:00 44 L 26 H 98 05/01/23 00:00 36.5 C 01/12/24 00:00 128/59 L 05/01/23 00:00 42 L 13 98 Room Air 05/01/23 00:00 46 L 04/30/23 23:00 42 L 16 97 04/30/23 23:00 128/60 04/30/23 22:00 148/73 H 04/30/23 22:00 43 L 19 99 04/30/23 21:00 122/72 04/30/23 21:00 45 L 26 H 98 Lab & Micro Results (Past 24 Hours) RBC 4.66 M/uL (4.20-5.40) 05/01/23 WBC 6.61 K/ul (4.8-10.8) 05/01/23 Hgb 12.2 g/dl (12.0-16.0) 05/01/23 Hct 37.1 % (37.0-47.0) 05/01/23 MCV 79.6 fL (80.0-100.0) L 05/01/23 MCH 26.2 pg (25.0-34.0) 05/01/23 MCHC 32.9 g/dL (32.0-36.0) 05/01/23 RDW Standard Deviation 39.4 fL (36.4-46.3) 05/01/23 RDW Coefficient of Variation 13.8 % (11.5-14.5) 05/01/23 Plt Count 336 K/uL (130-400) 05/01/23 MPV 10.5 fL (9.4-12.4) 05/01/23 Neutrophils (%) (Auto) 62.5 % 05/01/23 Lymphocytes (%) (Auto) 25.9 % 05/01/23 Monocytes # (Auto) 0.56 K/uL (0.11-0.59) 05/01/23 Eosinophils # (Auto) 0.14 K/uL (0.00-0.50) 05/01/23 Immature Granulocyte % (Auto) 0.2 % 05/01/23 Neutrophils # (Auto) 4.14 K/uL (1.40-6.50) 05/01/23 Lymphocytes # (Auto) 1.71 K/uL (1.20-3.40) 05/01/23 Monocytes # (Auto) 0.56 K/uL (0.11-0.59) 05/01/23 Eosinophils # (Auto) 0.14 K/uL (0.00-0.50) 05/01/23 Basophils # (Auto) 0.05 K/uL (0.00-0.20) 05/01/23 Immature Granulocyte # (Auto) 0.01 K/uL (0.01-0.20) 4 Na 139 mmol/L (136-145) 05/01/23 K 3.8 mmol/L (3.5-5.1) 05/01/23 Cl 108 mmol/L (98-107) H 05/01/23 CO2 25 mmol/L (21-32) 05/01/23 Anion Gap 6 (3-11) 05/01/23 BUN 11 mg/dl (6-23) 05/01/23 Creatinine 0.75 mg/dl (0.6-1.2) 05/01/23 Estimated GFR ( Amer) 133.9 ml/min 05/01/23 Estimated GFR (Non-Af Amer) 115.6 ml/min 05/01/23 BUN/Creatinine Ratio 14.7 (10-20) 05/01/23 Glu 80 mg/dl (70-99(Fasting)) 05/01/23 Ca 8.7 mg/dl (8.6-10.3) 05/01/23 Total Bilirubin 0.4 mg/dl (0.2-1.0) 04/30/23 AST 24 U/L (13-39) 04/30/23 ALT 30 U/L (7-52) 04/30/23 Alkaline Phosphatase 63 U/L (34-104) 04/30/23 TP 7.2 gm/dl (6.0-8.3) 04/30/23 Albumin 4.5 gm/dl (3.4-5.0) 04/30/23 Globulin 2.7 gm/dl (2.5-4.0) 04/30/23 Albumin/Globulin Ratio 1.7 (0.9-2) 04/30/23 Mg 1.9 mg/dl (1.7-2.4) 05/01/23 04:47 Calcium Level 8.7 mg/dl (8.6-10.3) 05/01/23 04:47 Prothromb Time International Ratio 1.1 (0.9-1.1) 04/30/23 15:1 5 Diagnostic Findings (Past 24 Hours) Chest X-Ray 04/30/23 15:05 SINGLE VIEW CHEST CLINICAL HISTORY: Atypical chest pain FINDINGS: A PA chest radiograph is obtained. No prior studies are available for comparison at the time of dictation. The cardiomediastinal silhouette is unremarkable. The lungs and pleural spaces are clear. No pneumothorax is seen. The bony thorax is grossly intact. IMPRESSION: No active disease in the chest. ACT 112: Negative or not required by law. Electronically signed by: Santi Pagan M.D. 04/30/2023 3:44 PM Chest CTA 04/30/23 16:16 CT ANGIOGRAM OF THE CHEST CLINICAL HISTORY: Atypical chest pain COMPARISON STUDY: Chest x-ray dated 04/30/2023. TECHNIQUE: Following the IV administration of 115 cc of Optiray 320, CT ang iogram of the chest was performed from the upper abdomen to the thoracic inlet utilizing the pulmonary embolus protocol. Images are reviewed in the axial, sagittal, and coronal planes. 3-D MIPS images are created and assessed. IV contrast was administered without complication. A dose lowering technique was utilized adhering to the principles of ALARA. CT DOSE: 306.36 mGy.cm FINDINGS: Thyroid: Imaged portions of the thyroid gland are normal in size and attenuation. Thoracic aorta: The thoracic aorta is normal in caliber and demonstrates standard 3-vessel arch anatomy. No dissection is seen. Pulmonary vasculature: The pulmonary trunk is normal in caliber. There are no filling defects identified in main, lobar, or segmental pulmonary branches to suggest pulmonary embolus. Heart: The heart is normal in size and without pericardial effusion. Lungs and pleural spaces: There is no airspace consolidation or pleural effusion. The trachea and central airway are clear. A 5 mm left lower lobe pulmonary nodule is seen on image #53, and a 3 mm pleural-based nodule at the left lung base is seen on image #48. These are of doubtful significance in this age group. There is also mild pleural-based nodularity along the left major fissure. Mediastinum: There is no mediastinal lymphadenopathy. Alida: Clear. Axillae: There is no axillary lymphadenopathy. Upper abdomen: Partially visualized upper abdominal viscera is within normal limits. Skeletal structures: No lytic or blastic bony lesions are seen. IMPRESSION: 1. There is no evidence of pulmonary embolus in the main, lobar, or segmental pulmonary arteries. 2. The lungs are clear. ACT 112: Negative or not required by law Electronically signed by: Santi Pagan M.D. 04/30/2023 4:54 PM I & O Totals 24 Hours 04/30/23 05/01/23 05/02/23 06:59 06:59 06:59 Intake Total 989.583 / 989.583 Balance 989.583 / 989.583 Cumulative 04/30/23 14:58 thru 05/01/23 06:00 Intake Total 989.583 Balance 989.583 RT Ventilator Mngmt (Last Documented) Ventilator Ordered Settings Respiratory Rate 15 05/01/23 06:00 Ventilator - PT Measurements Respiratory Rate 15 Coding Level of Care Code 04067 SUB INP/OBS CARE 2/35MIN Diagnoses Complete heart block I44.2 Elevated troponin R79.89
--- NOTE | 2023-05-01 10:05 | XCELERA ---
[id number] [id number]
[2023-05-01] MEDS: ICU Protocol for HYPERglycemia SCH ×2 (10:56→15:05)
[2023-05-01] MEDS: MAGNESIUM OXIDE 400 MG TAB PO SCH ×2 (10:56→20:16)
--- NOTE | 2023-05-01 11:37 | Electrocardiogram Report ---
Test Reason : Blood Pressure : / mmHG Vent. Rate : 045 BPM Atrial Rate : 045 BPM P-R Int : 416 ms QRS Dur : 120 ms QT Int : 588 ms P-R-T Axes : 069 103 023 degrees QTc Int : 508 ms Sinus rhythm with 2:1 heart block Right bundle branch block Abnormal ECG When compared with ECG of 30-APR-2023 20:52, No significant change Reconfirmed by Renato Gray ([id number]) on 05/01/2023 11:40:40 AM Referred By: REFERRED SELF Confirmed By:Renato Gray
--- NOTE | 2023-05-01 11:41 | Electrocardiogram Report ---
Test Reason : Blood Pressure : / mmHG Vent. Rate : 041 BPM Atrial Rate : 054 BPM P-R Int : 000 ms QRS Dur : 132 ms QT Int : 628 ms P-R-T Axes : 070 101 028 degrees QTc Int : 518 ms Sinus bradycardia with complete heart block Right bundle branch block Abnormal ECG When compared with ECG of 30-APR-2023 20:52, Heart block now appears complete Confirmed by Renato Gray ([id number]) on 05/01/2023 11:41:46 AM Referred By: REFERRED SELF Confirmed By:Renato Gray
--- NOTE | 2023-05-01 11:42 | Electrocardiogram Report ---
Test Reason : Blood Pressure : / mmHG Vent. Rate : 045 BPM Atrial Rate : 053 BPM P-R Int : 000 ms QRS Dur : 122 ms QT Int : 554 ms P-R-T Axes : 071 102 030 degrees QTc Int : 479 ms Sinus rhythm with complete heart block Rightward axis Right bundle branch block Abnormal ECG When compared with ECG of 30-APR-2023 15:20, Heart block now appears complete Confirmed by Renato Gray ([id number]) on 05/01/2023 11:42:37 AM Referred By: REFERRED SELF Confirmed By:Renato Gray
[2023-05-01] MEDS ORDERED: cefTRIAXone SODIUM 2,000 MG in DEXTROSE 5 % MINI-B 50 ML IV SCH (13:15)
--- NOTE | 2023-05-01 13:58 | Cardiology Consultation ---
Date of Consultation May 01, 2023 Assessment & Plan (1) Complete heart block: (2) Myocarditis: (3) Chest pain: Plan Healthy 17-year-old woman with mild myocarditis complicated by complete heart block, likely secondary to conduction system inflammation. Fortunately, favorable escape rhythm with top normal QRS duration and reasonable rate (45 bpm) resulting in minimal symptoms. Although Lyme titer negative, she has had potential tick exposure and the relatively low risk of antibiotic treatment for Lyme versus the high risk of seronegative Lyme disease going untreated warrants initiation of antibiotics. While inpatient, IV ceftriaxone appropriate, if conduction improves likely could change to oral doxycycline. Would continue to observe overnight to ensure she has a stable escape rhythm and that her troponin values continue to decline, hopefully conduction will improve during this time. If not, may need PICC line/continued IV antibiotics at home. Since her rhythm has been stable overnight, could gradually increase activity to ensure not symptomatic when up and about. Recommend MCOT monitor upon discharge to continue monitoring conduction abnormality. Duration of antibiotic treatment will depend upon clinical response (resolution of conduction system disease) and could also be guided by follow-up Lyme serology in 1 to 2 weeks. Absence of clearly positional chest discomfort, pericarditic ECG changes, or pericardial effusion weigh against concurrent pericarditis, so no role for nonsteroidals or colchicine at this time. Dr. Jara will be rounding for the weekend and is aware of this patient's clinical course. History of Present Illness Reason for Consultation: Complete heart block Requesting Physician: Marko Winter DO Attending Physician: Marko Winter DO History of Present Illness Healthy 17-year-old woman with no prior cardiac history noted to have 1 week of exertional dyspnea on exertion and mild chest discomfort who presented to the emergency department and was noted to be in high-grade AV block (initially 2:1, then complete heart block). She denies any viral URI type symptoms, fever, chills, rash, arthralgias, or known tick bite. She is a [employer] student but was [place] for the [place]. At baseline, she is physically active and was involved in gymnastics, noting no exertional symptoms. She is not aware of her baseline heart rate, but physician visits in the past have apparently not resulted in any commentary regarding bradycardia. Evaluation here showed sinus rhythm with complete heart block, mildly elevated/flat troponin curve, negative Lyme titer, unremarkable echocardiogram. At the time of my evaluation this morning, she had no chest discomfort and was comfortable at rest. She was able to walk to the bedside commode without palpitations, dizziness, lightheadedness, presyncope, or syncope. She does note occasional sense of palpitations. When she had chest discomfort earlier this week, it was 2/10 severity and not particularly positional or exertional. She has not noted any lightheadedness, presyncope, or syncope over the past week. Allergies Allergy/AdvReac Type Severity Reaction Status Date / Time No Known Allergies Allergy Unverified 04/30/23 17:09 Home Medications Medication Instructions Recorded Confirmed Type No Known Home Medications 04/30/23 04/30/23 History Patient History Medical History No pertinent past medical history Surgical History No pertinent past surgical history Social History Smoking Status: Never smoker Second Hand Exposure: No; Do You Dip or Chew Tobacco: No; Hx Alcohol Use: No Hx Substance Use: No Preferred Language: Citizen Of [place] Communication Ability: Effective Line Walker Required: No Beliefs That Will Affect Care: None Current Living Situation: Other Current Living Situation Comment: dorm room at [facility] Other Information That Helps Us Care for You: No Feels Safe at Home: Yes Safety Concerns: Feels Safe At This Time Assistive Devices: None Physical Exam Physical Exam: Adult white female in no distress. Afebrile. BP normotensive (120/45 mmHg). Pulse 45 bpm and regular. Respirations 14 and unlabored. Skin: no ecchymoses or generalized lesions. HEENT: unremarkable. Neck: JVP at the clavicle at 90 degrees, no carotid bruits. Lungs: clear. Cardiac: regular rhythm, normal S1-2, no murmur. Abdomen: benign. Extremities: no edema, pulses intact. Neurologic: normal affect and conversation, nonfocal. Results & Data Laboratory Results Troponin values 215, 202, 208, 185. Lyme titer was negative. CBC normal. Sed rate normal. CRP normal. Normal electrolytes, BUN 11, creatinine 0.75. Magnesium 1.9. Talk screen negative. Diagnostic Findings ECG on admission showed sinus rhythm with 2-1 AV block. Atrial rate 98 bpm with ventricular rate 49 bpm. Normal QTc and unremarkable ST segments. Incomplete right bundle branch block. Second ECG showed sinus rhythm with complete heart block, atrial rate 100 bpm, ventricular rate 45 bpm. Right bundle branch block. Third ECG is virtually identical to the second. ECG this morning showed sinus rhythm with complete heart block, atrial rate 90 bpm, ventricular rate 41 bpm. Right bundle branch block. Chest x-ray and chest CT on admission unremarkable. No pulmonary embolism. Echocardiogram showed normal cardiac structure. No significant valvular disease (mild diastolic mitral and tricuspid regurgitation secondary to atrial/ventricular dyssynchrony). PG Care Time/CCT Total # of Minutes Spent Total Time Spent with Patient: Total time spent is greater than 50% in coordination of care (as documented) at patient's floor/unit and/or counseling patient: Coding Level of Care Code 90363 IN/OBS CONSULT LVL 5,80M Diagnoses Complete heart block I44.2 Myocarditis I51.4 Chest pain R07.9 Chest pain type: unspecified (3) Chest pain Chest pain type: unspecified Qualified Code(s): R07.9 - Chest pain, unspecified
--- NOTE | 2023-05-01 18:10 | Hospitalist Progress Note ---
Date of Service May 01, 2023 Assessment & Plan (1) Complete heart block: Plan: Pacer pads in place Despite negative Lyme titer, with no preceding cardiac history and reassuring echoes for structural heart disease, it seems unlikely that she has a primary conduction problem, particularly given that [place] very endemic [place] for tickborne illnes[place] that end, we all are in agreement that the most prudent plan of care would be to assume this could be Lyme carditis until proven otherwise, and initiate ceftriaxone and follow. Essentially as a therapeutic trial, if her A-V dissociation improves over several days of ceftriaxone, that would make it far more likely this was the case, and if it fails to improve, then it would also essentially prove that she does have some degree of a conduction problem that may require further intervention. Continue to monitor closely, although fortunately she appears very stable and asymptomatic at this time. (2) Chest pain: Plan: Possibly perimyocarditisbut echo reassuring, no specific intervention other than above. (3) Shortness of breath: Plan VTE Prophylaxis - low risk Diet - NPO Disposition - admit to ICU Admission and Anticipated Discharge Date Admission Date: April 30, 2023 Subjective No new complaints. Plan of care discussed. All questions answered to the best my ability and to patient/family's satisfaction. Case discussed with ICU and cardiology. Physical Exam Physical Exam: In general she is awake and alert pleasant no distress. Breathing unlabored no accessory muscle use good effort. Skin shows no rashes no pallor or icterus. Neuro without focal deficits. Results & Data Results & Data Vital Signs (Past 12 Hours) Vital Signs Pulse Resp BP Pulse Ox O2 Del Method 05/01/23 15:00 116/60 Room Air 05/01/23 15:00 42 L 15 94 05/01/23 14:00 41 L 14 05/01/23 14:00 117/53 L Room Air 05/01/23 13:00 43 L 21 05/01/23 13:00 125/47 L 05/01/23 12:54 42 L 17 97 05/01/23 12:54 126/49 L 05/01/23 12:00 43 L 18 97 05/01/23 11:00 127/51 L 05/01/23 11:00 42 L 19 05/01/23 10:00 120/45 L Room Air 05/01/23 10:00 65 14 05/01/23 09:00 129/63 05/01/23 09:00 42 L 15 05/01/23 08:00 133/63 05/01/23 08:00 43 L 22 05/01/23 08:00 40 L 05/01/23 07:00 131/60 05/01/23 07:00 41 L 18 99 Room Air PG Care Time/CCT Total # of Minutes Spent Total Time Spent with Patient: Total time spent is greater than 50% in coordination of care (as documented) at patient's floor/unit and/or counseling patient: Coding Level of Care Code 83547 SUB INP/OBS CARE 2/35MIN Diagnoses Complete heart block I44.2 Chest pain R07.9 Chest pain type: unspecified Shortness of breath R06.02 (2) Chest pain Chest pain type: unspecified Qualified Code(s): R07.9 - Chest pain, unspecified
[2023-05-02 05:43] LABS: Basophils # (auto) 0.05 K/uL (0.00-0.20); Basophils % (auto) 0.8 %; Eosinophils # (auto) 0.29 K/uL (0.00-0.50); Eosinophils % (auto) 4.6 %; Hematocrit (blood only) 39.5 % (37.0-47.0); Hemoglobin 12.8 g/dl (12.0-16.0); Immature Granulocytes # (auto) 0.01 K/uL (0.01-0.20); Immature Granulocytes % (auto) 0.2 %; Lymphocytes % (auto) 30.4 %; Mean Corpuscular Hemoglobin 26.3 pg (25.0-34.0); Mean Corpuscular Hgb Conc 32.4 g/dL (32.0-36.0); Mean Corpuscular Volume 81.1 fL (80.0-100.0); Mean Platelet Volume 10.6 fL (9.4-12.4); Monocytes # (auto) 0.62 K/uL (0.11-0.59); Monocytes % (auto) 9.9 %; Neutrophils # (auto) 3.38 K/uL (1.40-6.50); Neutrophils % (auto) 54.1 %; Platelet Count 341 K/uL (130-400); RDW Standard Deviation 41.1 fL (36.4-46.3); Red Blood Count 4.87 M/uL (4.20-5.40); White Blood Count 6.25 K/ul (4.8-10.8)
[2023-05-02 06:00] LABS: BUN Creatinine Ratio 19.8 (10-20); Calcium 8.6 mg/dl (8.6-10.3); Creatinine Clr Calc Pharmacy 83.2 ml/min; Est GFR (African American) 113.5 ml/min; Est GFR (Non-African American) 97.9 ml/min; Magnesium 2.1 mg/dl (1.7-2.4); Phosphorus 4.7 mg/dl (2.5-4.9); Potassium 4.2 mmol/L (3.5-5.1)
--- NOTE | 2023-05-02 07:42 | Critical Care Progress Note ---
Date of Service May 02, 2023 Assessment & Plan (1) Complete heart block: (2) Elevated troponin: Plan Impression: 17-year-old female with intermittent chest pain and dizziness for 5 to 6 days found to be in complete heart block in the emergency room. Lyme titers negative. She has been empirically started on Rocephin. Continues to demonstrate third-degree heart block. He is hemodynamically stable with a narrow escape rhythm and rate in the 40s and is relatively asymptomatic. Recommendations: 1. Complete heart block: Unclear etiology. The patient was started by cardiology on Rocephin for empiric Lyme disease with negative titers. CRP undetectable and ESR normal. Unclear the duration of this problem. She has a stable narrow complex escape rhythm in the 40s and is asymptomatic. Pacer pads are in place. This point time I do not think she requires ICU level care and can likely be transferred to the floor. I communicated mother's request to have the patient transferred to [facility] to both the hospitalist and the cardiology service and will allow them to make final decisions regarding disposition and initiate transfer if appropriate. ID consultation may be appropriate 2. Elevated troponin. Now decreasing. Echocardiogram unremarkable The patient has a narrow complex escape rhythm in the 40s and appears to be hemodynamically stable. Unclear if she requires continued ICU level care and will defer disposition to cardiology. She may be able to downgrade to telemetry given her clinical stability but again will defer to them. Will continue to follow while in the intensive care unit but if she downgrades, will transition care to the hospitalist. Disposition per primary service and hospitalist. She does not appear to have a critical care need at this point time and can likely be transferred to a telemetry floor. Critical care will sign off. Feel free to contact us with questions or concerns Admission and Anticipated Discharge Date Admission Date: April 30, 2023 Subjective Patient seen and examined. EMR reviewed. Discussed with mother and patient at bedside as well as with bedside critical care nurse and on multidisciplinary rounds. Patient is done well overnight. She did develop a small amount of substernal chest discomfort early this morning when she woke up. It was not positional. It lasted for about 20 minutes then resolved spontaneously. No shortness of breath nausea or vomiting associated with this. Was similar to the discomfort that she has had previously. She has been up using the commode. She denies any palpitations, syncope, or presyncope. No graying out. No dizziness or lightheadedness. She denies fevers chills night sweats or other constitutional symptoms. She has not had any rashes. No arthralgias Mother is requesting the patient be transferred to [facility]. Apparently they have family members who work there and the case has been discussed with a physician on the cardiovascular team who advised they would be happy to accept the patient. A formal request for transfer has not yet been made Review of Systems Review of Systems: All systems reviewed & are unremarkable except as noted in Subjective Physical Exam Constitutional: WD/WN, vitals as above Neck: trachea midline, no thyromegaly Respiratory: normal respiratory effort, lungs clear to auscultation Cardiovascular: Rate/Rhythm: + bradycardic Heart Sounds: normal S1 and normal S2; no murmur Gastrointestinal (Abdomen): normal bowel sounds, soft, nontender, no hepatosplenomegaly Musculoskeletal: Extremities: extremities normal to inspection Skin: no rashes, warm and dry Lymphatic: no cervical lymphadenopathy Results & Data Results & Data Vital Signs (Past 12 Hours) Vital Signs Temp Pulse Resp BP Pulse Ox Pulse Ox O2 Del Method 05/02/23 06:00 38 L 15 111/53 L 96 05/02/23 05:00 37 L 9 L 05/02/23 05:00 108/57 L 05/02/23 04:10 36.5 C 05/02/23 04:00 37 L 19 106/54 L 96 05/02/23 03:00 37 L 19 107/50 L 97 Room Air 05/02/23 02:00 38 L 14 05/02/23 02:00 106/57 L 05/02/23 01:00 103/55 L 05/02/23 01:00 37 L 14 96 Room Air 05/02/23 00:00 36.5 C 05/02/23 00:00 111/53 L 05/02/23 00:00 38 L 14 05/01/23 23:00 112/49 L 05/01/23 23:00 38 L 12 05/01/23 23:00 39 L 05/01/23 22:00 125/53 L 05/01/23 22:00 40 L 14 98 05/01/23 21:00 127/56 L 05/01/23 21:00 40 L 21 91 Room Air 05/01/23 20:30 40 L 14 97 05/01/23 20:00 115/63 05/01/23 20:00 41 L 16 94 Room Air 05/01/23 20:00 95 O2 Del Method 05/02/23 06:00 05/02/23 05:00 05/02/23 05:00 05/02/23 04:10 05/02/23 04:00 05/02/23 03:00 05/02/23 02:00 05/02/23 02:00 05/02/23 01:00 05/02/23 01:00 05/02/23 00:00 05/02/23 00:00 05/02/23 00:00 05/01/23 23:00 05/01/23 23:00 05/01/23 23:00 05/01/23 22:00 05/01/23 22:00 05/01/23 21:00 05/01/23 21:00 05/01/23 20:30 05/01/23 20:00 05/01/23 20:00 05/01/23 20:00 Room Air Critical Care Results & Data Vital Signs (Past 12 Hours) Vital Signs Temp Pulse Resp BP Pulse Ox Pulse Ox O2 Del Method 05/02/23 06:00 38 L 15 111/53 L 96 05/02/23 05:00 37 L 9 L 05/02/23 05:00 108/57 L 05/02/23 04:10 36.5 C 05/02/23 04:00 37 L 19 106/54 L 96 05/02/23 03:00 37 L 19 107/50 L 97 Room Air 05/02/23 02:00 38 L 14 05/02/23 02:00 106/57 L 05/02/23 01:00 103/55 L 05/02/23 01:00 37 L 14 96 Room Air 05/02/23 00:00 36.5 C 05/02/23 00:00 111/53 L 05/02/23 00:00 38 L 14 05/01/23 23:00 112/49 L 05/01/23 23:00 38 L 12 05/01/23 23:00 39 L 05/01/23 22:00 125/53 L 05/01/23 22:00 40 L 14 98 05/01/23 21:00 127/56 L 05/01/23 21:00 40 L 21 91 Room Air 05/01/23 20:30 40 L 14 97 05/01/23 20:00 115/63 05/01/23 20:00 41 L 16 94 Room Air 05/01/23 20:00 95 O2 Del Method 05/02/23 06:00 05/02/23 05:00 05/02/23 05:00 05/02/23 04:10 05/02/23 04:00 05/02/23 03:00 05/02/23 02:00 05/02/23 02:00 05/02/23 01:00 05/02/23 01:00 05/02/23 00:00 05/02/23 00:00 05/02/23 00:00 05/01/23 23:00 05/01/23 23:00 05/01/23 23:00 05/01/23 22:00 05/01/23 22:00 05/01/23 21:00 05/01/23 21:00 05/01/23 20:30 05/01/23 20:00 05/01/23 20:00 05/01/23 20:00 Room Air Lab & Micro Results (Past 24 Hours) RBC 4.87 M/uL (4.20-5.40) 05/02/23 WBC 6.25 K/ul (4.8-10.8) 05/02/23 Hgb 12.8 g/dl (12.0-16.0) 05/02/23 Hct 39.5 % (37.0-47.0) 05/02/23 MCV 81.1 fL (80.0-100.0) 05/02/23 MCH 26.3 pg (25.0-34.0) 05/02/23 MCHC 32.4 g/dL (32.0-36.0) 05/02/23 RDW Standard Deviation 41.1 fL (36.4-46.3) 05/02/23 RDW Coefficient of Variation 14.0 % (11.5-14.5) 05/02/23 Plt Count 341 K/uL (130-400) 05/02/23 MPV 10.6 fL (9.4-12.4) 05/02/23 Neutrophils (%) (Auto) 54.1 % 05/02/23 Lymphocytes (%) (Auto) 30.4 % 05/02/23 Monocytes # (Auto) 0.62 K/uL (0.11-0.59) H 05/02/23 Eosinophils # (Auto) 0.29 K/uL (0.00-0.50) 05/02/23 Immature Granulocyte % (Auto) 0.2 % 05/02/23 Neutrophils # (Auto) 3.38 K/uL (1.40-6.50) 05/02/23 Lymphocytes # (Auto) 1.90 K/uL (1.20-3.40) 05/02/23 Monocytes # (Auto) 0.62 K/uL (0.11-0.59) H 05/02/23 Eosinophils # (Auto) 0.29 K/uL (0.00-0.50) 05/02/23 Basophils # (Auto) 0.05 K/uL (0.00-0.20) 05/02/23 Immature Granulocyte # (Auto) 0.01 K/uL (0.01-0.20) 4 Na 139 mmol/L (136-145) 05/02/23 K 4.2 mmol/L (3.5-5.1) 05/02/23 Cl 109 mmol/L (98-107) H 05/02/23 CO2 24 mmol/L (21-32) 05/02/23 Anion Gap 6 (3-11) 05/02/23 BUN 17 mg/dl (6-23) 05/02/23 Creatinine 0.86 mg/dl (0.6-1.2) 05/02/23 Estimated GFR ( Amer) 113.5 ml/min 05/02/23 Estimated GFR (Non-Af Amer) 97.9 ml/min 05/02/23 BUN/Creatinine Ratio 19.8 (10-20) 05/02/23 Glu 87 mg/dl (70-99(Fasting)) 05/02/23 Ca 8.6 mg/dl (8.6-10.3) 05/02/23 Phosphorus Level 4.7 mg/dl (2.5-4.9) 05/02/23 Mg 2.1 mg/dl (1.7-2.4) 05/02/23 05:25 Calcium Level 8.6 mg/dl (8.6-10.3) 05/02/23 05:25 I & O Totals 24 Hours 05/01/23 05/02/23 05/03/23 06:59 06:59 06:59 Intake Total 989.583 / 756.070 7750 / 2325 Balance 989.583 / 449.226 0497 / 2325 Cumulative 04/30/23 14:58 thru 05/02/23 06:54 Intake Total 3314.583 Balance 3314.583 RT Ventilator Mngmt (Last Documented) Ventilator Ordered Settings Respiratory Rate 15 05/02/23 06:00 Ventilator - PT Measurements Respiratory Rate 15 Coding Level of Care Code 75934 SUB INP/OBS CARE 2/35MIN Diagnoses Complete heart block I44.2 Elevated troponin R79.89
[2023-05-02] MEDS: MAGNESIUM OXIDE 400 MG TAB PO SCH (08:06)
--- NOTE | 2023-05-02 11:26 | Discharge Summary ---
Date of Service May 02, 2023 Admission HPI Per Admitting Provider Juanita Mckeon is a 17 year old female who presents to the ER with intermittent exertional chest pain shortness of breath and dizziness. New onset over the last 5-6 days without significant progression. She is usually physically active without any of these symptoms. Otherwise she has felt well without fever, chills, respiratory, gastroenterology or urinary infective symptoms. She has not noticed her symptoms getting much worse but also not better therefore decided to come to the ER today. She notably has also noticed the chest pain while lying down but do less of an extent. Only recent over the counter medication has been diphenhydramine which she only took 4 times during finals. No prior cardiac history. No prior pertinent medical or surgical history. No known tick bites [place] Principal Diagnosis complete heart block Discharge Exam Patient sitting in bed and in no acute distress. Discharge Data Allergies Allergy/AdvReac Type Severity Reaction Status Date / Time No Known Allergies Allergy Unverified 04/30/23 17:09 Consultations 04/30/23 17:27 ED Decision to Admit Stat 04/30/23 18:21 Consult Cardiology Routine 04/30/23 19:00 Consult Supervisor Travel Trailer Routine 05/02/23 10:48 Burn CD for patient Stat Ordered Studies 04/30/23 16:16 CT angio chest PE protocol Stat Hospital Course (1) Complete heart block: On 05/[address] Despite negative Lyme titer, with no preceding cardiac history and reassuring echoes for structural heart disease, it seems unlikely that she has a primary conduction problem, particularly given that [place] for [place] end, we all are in agreement that the most prudent plan of care would be to assume this could be Lyme carditis until proven otherwise, and initiate ceftriaxone and follow. Essentially as a therapeutic trial, if her A-V dissociation improves over several days of ceftriaxone, that would make it far more likely this was the case, and if it fails to improve, t hen it would also essentially prove that she does have some degree of a conduction problem that may require further intervention. Continue to monitor closely, although fortunately she appears very stable and asymptomatic at this time. On 05/02 Family requested a transfer to [facility] due to undiagnosed etiology of her complete heart block, which could be viral, congenital. Lyme seems unlikely due to negative antibodies. Dr. Doe accepted patient. Patient will be discharged this AM. (2) Chest pain: Possibly perimyocarditisbut echo reassuring, no specific intervention other than above. (3) Shortness of breath: Total Time Total Time Spent Total Time Spent (In Minutes): 32 Discharge Plan Discharge Items Reason For Visit: COMPLETE HEART BLOCK Follow-up/Referrals: Jaycob Simmons MD [Primary Care Provider] - Medications and DC Order Prescriptions: No Action No Known Home Medications Admission Data Admit Date/Time: 04/30/23 18:21 Attending Provider: Brennan Mccall Admit Provider: Romaine Tay Primary Care Provider: Jaycob Simmons Other Providers: Renato Gray; Romaine Tay; Vito Edmond Other Interventions: Discharge Summary Assessment (RN) Last Done: 05/02/23 10:49 Coding Level of Care Code 74577 INP/OBS DISCH >30 MIN Diagnoses Complete heart block I44.2 Chest pain R07.9 Chest pain type: unspecified Shortness of breath R06.02
[2023-05-02] MEDS ORDERED: ONDANSETRON INJ 2 MG/ML 2 ML VIAL ONE (11:51)
[2023-05-02] MEDS ORDERED: ONDANSETRON INJ 2 MG/ML 2 ML VIAL IV ONE (11:54)
--- NOTE | 2023-05-03 20:33 | Electrocardiogram Report ---
Test Reason : Blood Pressure : / mmHG Vent. Rate : 036 BPM Atrial Rate : 037 BPM P-R Int : 000 ms QRS Dur : 122 ms QT Int : 590 ms P-R-T Axes : 000 191 037 degrees QTc Int : 456 ms Sinus rhythm with complete heart block Idioventricular rhythm Right bundle branch block Abnormal ECG When compared with ECG of 01-MAY-2023 06:23, Idioventricular rhythm has replaced Sinus rhythm Confirmed by Yoel Beauchamp ([id number]) on 05/03/2023 8:33:23 PM Referred By: REFERRED SELF Confirmed By:Yoel Beauchamp
== END 2023-05-02 12:25 | disposition short-term general hospital (02) | DRG 309 ==
LOC: ED 14:58 → SUATTDRO 18:21 → 1E 18:21